=== PATIENT | female | born 1960 | race Caucasian/White ===

== ENCOUNTER 2016-09-08 07:00 | Inpatient (IN) | payer OTHER ==
[~2016-09-08] VITALS: Ht 172.7 cm; Wt 105.7 kg
[~2016-09-08 07:00] MED LIST: METFORMIN HCL500 M2 PO; OXYBUTYNIN CHLOR5 M3 PO; SYNTHROID175 MCG PO
[2016-09-11] MEDS ORDERED: VITAMIN D-32000 UNI1 PO (09:18)
[2016-09-11] MEDS ORDERED: CALCIUM 500 +1 EAC5 PO (09:19)
[2016-09-11] MEDS ORDERED: MULTIVITAMINS1 EACH PO (09:19)
--- NOTE | 2016-09-11 13:22 | Admission Core Measures ---
Admission Meds I reviewed the following Meds: Current Medications Sig/Kelly Start time Last Medication Dose Stop Time Status Admin Acetaminophen 1,000 MG Q6 09/11 1800 UNVr (Ofirmev) 09/12 1214 N/A 1 UNIT (No Carrier) Acetaminophen/ 15 ML Q6P PRN 09/11 1315 UNVr Hydrocodone Bitart (Hycet) Cefazolin Sodium 2,000 MG ONCE 09/11 0000 NR (Kefzol-Ancef Inj) 09/11 2359 Dexamethasone 4 MG ONCE 09/11 0000 NR (Decadron Inj) 09/11 2359 Dextrose/Sodium 1,000 ML Q8H 09/11 1330 UNVr Chloride (D5-Normal Saline) Heparin Sodium 5,000 UNIT Q8 09/11 2200 UNVr (Porcine) Heparin Sodium 5,000 UNIT ONCE 09/11 0000 NR (Porcine) 09/11 2359 Hydromorphone HCl 1 MG Q4P PRN 09/11 1315 UNVr (Dilaudid) Insulin Aspart 0 Q6 09/11 1800 UNVr (NovoLOG) Levothyroxine Sodium 0.175 MG DAILY AC 09/12 0700 UNVr (Synthroid) Ondansetron HCl 4 MG Q6P PRN 09/11 1315 UNVr (Zofran) Oxybutynin Chloride 2.5 MG BID 09/11 2200 UNVr (Ditropan 2.5MG Tab(1/2 of a 5mg tab)) Pantoprazole Sodium 40 MG DAILY 09/12 1000 UNVr (Protonix) Simethicone 40 MG Q6P PRN 09/11 1315 UNVr (Mylicon) Acute Coronary Syndrome Inclusion Criteria ACS Diagnosis No Inpatient Core Measures LDL Reminder: If No, please order W/I first 24hr of stay Congestive Heart Failure Inclusion Criteria CHF Diagnosis No Cerebrovascular accident Inclusion Criteria CVA/TIA Diagnosis No Inpatient Core Measures Bedside Swallow Eval Reminder: If BSE failed, place ST order Antithrombotic Reminder: Order Antithrombotic Medication by end of day 2 Antithrombotic Reminder: Document Reason Antithrombotic Not ordered by end of day 2 AFIB/Flutter Reminder: If Present, add to problem list AFIB/Flutter Reminder: Order Anticoag Medication for pts with AFIB/Flutter Atherosclerosis Reminder: If Present, add to problem list LDL Reminder: If No, please order W/I first 24hr of stay PT Order Reminder: If No, please order Venous thromboembolism Inpatient Core Measures VTE Risk Factors: Age > 40, Obesity, Surgery No [facility] VTE prophylaxis d/t No contraindications No VTE Pharm Prophylaxis d/t No contraindications Inclusion Criteria - Per Current guidelines, there needs to be overlap - treatment for the first 5 days of Warfarin therapy. - Parenteral Anticoagulation (IV or SC) needs to be - given along with Warfarin therapy. VTE Diagnosis No VTE Type NONE VTE Confirmed by (Test) NONE Problem List As ranked by this Provider includes Assessment & Plan 1. S/P laparoscopic sleeve gastrectomy 2. Hypothyroidism 3. Diabetes 4. Morbid obesity HOME MEDS Home Med List Calcium Carbonate/Vitamin D3 (Calcium 500 + D Tablet) 500 MG-400 TABLET 1 TAB PO DAILY SUPP (Reported) Cholecalciferol (Vitamin D3) (Vitamin D-3) 2,000 UNIT CAPSULE 1 TAB PO DAILY SUPP (Reported) Levothyroxine Sodium (Synthroid) 175 MCG TABLET 1 TAB PO DAILY HYPOTHYROID ( Reported) Metformin HCl (Metformin HCl ER) 500 MG TAB.ER.24 1.5 TAB PO DAILY DM II ( Reported) Multivitamin W/Iron, Minerals (Multivitamins With Iron) 1 EACH TAB.CHEW 1 TAB PO DAILY SUPP (Reported) Oxybutynin Chloride (Oxybutynin Chloride ER) 5 MG TAB.ER.24 1 TAB PO DAILY STRESS INCONTINENCE (Reported)
--- NOTE | 2016-09-11 14:13 | Patient Discharge Instructions ---
Discharge Instructions General Discharge Information You were seen/treated for: morbid obesity You had these procedures: laparoscopic sleeve gastrectomy (09/11/16) Watch for these problems: fever>101.3, increased pain, redness/swelling/drainage, dizziness, shortness of breath, chest pains No bath, but you may shower: Yes Acute Coronary Syndrome Inclusion Criteria At DC or during hospital stay patient has or had the following: ACS DIAGNOSIS No Discharge Core Measures Meds if any: Prescribed or Continued at Discharge Meds if any: NOT Prescribed or Continued at Discharge Congestive Heart Failure Inclusion Criteria At DC or during hospital stay patient has or had the following: CHF DIAGNOSIS No Discharge Core Measures Meds if any: Prescribed or Continued at Discharge Meds if any: NOT Prescribed or Continued at Discharge Cerebrovascular accident Inclusion Criteria At DC or during hospital stay patient has or had the following: CVA/TIA Diagnosis No Discharge Core Measures Meds if any: Prescribed or Continued at Discharge Meds if any: NOT Prescribed or Continued at Discharge Venous thromboembolism Inclusion Criteria VTE Diagnosis No VTE Type NONE VTE Confirmed by (Test) NONE Discharge Core Measures - Per Current guidelines, there needs to be overlap - treatment for the first 5 days of Warfarin therapy. - If discharged on Warfarin prior to 5 days of - overlap therapy, the patient will need to be - assessed for post discharge needs including - *Post discharge parental anticoagulation - *Warfarin and/or parental anticoagulation education - *Follow up date to check INR post discharge At least 5 days overlap therapy as Inpatient No Meds if any: Prescribed or Continued at Discharge Note: Overlap Therapy is Warfarin and Anticoagulant Meds if any: NOT Prescribed or Continued at Discharge
[2016-09-11 15:27] VITALS: BP 130/80
--- NOTE | 2016-09-11 15:27 | NUR ---
AT THIS TIME PT ARRIVED FROM PACU TO , PT ALERT AND ORIENTEDX3, ON RA, VSS, DENIES CP, DENIES SOB, +PULSES, DRESSINGS TO ABDOMEN C/D/I, PT HAS NO COMPLAINTS AT THIS TIME, ORIENTED TO ROOM AND CALL IBRAHIM, FLUIDS RUNNING PER EMAR, BED IN LOWEST POSITION, TWO BELONGINGS BAGS PUT ON SHELF, WILL CONT TO MONITOR.
--- NOTE | 2016-09-11 15:55 | PN- Bariatrics ---
Subjective Subjective: Postop check: Postop day 0 status post arthroscopic sleeve gastrectomy. Patient with minimal epigastric pain. No nausea, no vomiting, no fever no flulike illness. She has no other complaints. She is resting comfortably. Objective Vital Signs and I&Os vss,afebrile Physical Exam: Well-developed well-nourished no apparent distress. HEENT: Atraumatic, extraocular motion intact Neck: Supple, no lymphadenopathy Respiratory: No respiratory distress clear to auscultation bilateral. Heart: Regular rate and rhythm no murmur Abdomen: Dressings with minimal blood staining. No swelling no erythema. Abdomen is soft, mildly tender in the epigastric and central abdominal region. No distention. Extremities: No edema, no calf pain Neuro: Alert and oriented x3 Psych: Mood affect normal, normal memory normal judgment. Skin: Warm and dry, no rash on exposed skin Assessment/Plan Assessment/Plan Postop day 0 status post laparoscopic sleeve gastrectomy -Postoperative the patient is stable -Pain medication as needed -Heparin for DVT prophylaxis -Protonix IV for GI prophylaxis -Stage I bariatric diet -Nothing by mouth after midnight for upper GI series in the morning -Out of bed ad jennifer. -Check labs in a.m. -IV fluids until tolerating adequate by mouth -Insulin sliding scale, metformin being held Core Measures/Miscellaneous Venous Thromboembolism VTE Risk Factors: Age > 40, Surgery VTE Contraindications: No Contraindications VTE Diagnosis: No VTE Type: NONE VTE Confirmed by (Test): NONE Beta Rozina Is Beta Rozina a Home Med? No Antibiotics Is Patient on Antibiotics? No
--- NOTE | 2016-09-11 16:51 | Operative Report ---
Operative/Inv Procedure Report Surgery Date: 09/11/16 Name of Procedure: Laparoscopic Sleeve Gastrectomy Pre-Operative Diagnosis: Morbid obesity Post-Operative Diagnosis: same Estimated Blood Loss: less than 50ml Surgeon/Motor Assembler: LEONILA MOREL,Nemesio Castillo MD Anesthesia: general endotracheal tube IV Fluids: LR Urine Output: n/a Drains: none Specimens: portion of stomach Complications: none Condition: stable Operative Indication: see admission H&P Operative/Procedure Note Note: After informed consent and proper identification the patient was taken the operating room placed on the operating table in the supine position Venodyne stockings were applied she underwent a general endotracheal anesthetic the abdomen was prepped and draped in normal sterile fashion using a 1 cm incision left upper quadrant a 0 laparoscope and an Ethicon Visiport we entered the abdominal cavity without difficulty and insufflated with 14 mm of CO2 pressure. We had excellent visualization the liver was small smooth and glistening there was no evidence of a hiatal additional trochars a been placed 25 mm trochars in each of the subcostal margins a July liver retractor in the upper midline to retract the left lobe of the liver and a 15 mm trocar in the right mid abdomen we had anesthesia decompress the stomach with an orogastric tube and then remove it using a sonic excision scalpel we dissected the vascular attachments along the greater curvature of the stomach approximately 6 cm from the pylorus opposite the angularis all the way up to the fundus of the stomach and the angle his and reflected the fundus medially off of the left grace. We had excellent visualization of the retrogastric space the pancreas splenic vessels and spleen appeared normal. We had anesthesia place a 38 Panamanian bougie into the stomach using this as a guide and using in Endo SHEYLA stapler we fired 2 black load 60 cm cartridges with seam guard followed by 2 purple 60 cm cartridges with seam guard to completely transect the remnant stomach from the newly created sleeve we then had anesthesia remove the bougie we had no significant bleeding replaced the remnant stomach in an Endo Catch bag and pulled it out through the 15 mm trocar site we inspected the trocar sites is we remove them from the abdominal cavity closed all the skin incisions with 4-0 Monocryl subcuticular stitches Steri-Strips and dry sterile dressings were placed sponge and instrument counts were correct the patient tolerated the procedure without complications and was extubated and taken to the recovery room in stable condition Findings: normal liver and no evidence of hiatal hernia Discharge Disposition: PACU
[2016-09-11] MEDS ORDERED: PROTONIX40 M3 PO (17:21)
[2016-09-11] MEDS ORDERED: HYCET 7.5 MG-3473 ML PO (17:21)
--- NOTE | 2016-09-11 17:28 | Surg Short-stay <48hrs Dis Sum ---
See Addendum Visit Information Visit Dates Admission Date: 09/11/16 Discharge Date: 09/13/16 Surgical Short Stay DC Summary Admission Diagnosis: morbid obesity Final Diagnosis: same Procedure(s): laproscopic sleeve gastrectomy Summary/Significant Findings: Admitted for the above diagnosis and after a quick recovery in pacu admitted to the floor in stable condition for post op care . POD #1 upper GI study was done and the findings of the study was normal. Intiated on stage I bariatric diet . She remained vitally stable and pain is adequately controlled. Therefore it was deemed that she will be discharged home. Condition at Discharge: stable Discharge Disposition: home or self care Discharge instructions provided to patient/family: Yes Post discharge follow-up plan: call office to schedule /confirm the post op follow up visit.
[2016-09-11 19:48] VITALS: BP 152/90
[2016-09-11 22:41] VITALS: BP 150/88
[2016-09-12 07:00] VITALS: BP 130/78
--- NOTE | 2016-09-12 07:20 | PN- Bariatrics ---
Subjective Subjective: Reports expected nicolas-incisional discomfort. No nausea. Currently npo awaiting upper gi study. No problems overnight. Out of bed without difficulty. No dizziness. No shortness of breath. No chest pains. Voiding well. Objective Vital Signs and I&Os Vital Signs Date Time Temp Pulse Resp B/P Pulse O2 O2 Flow FiO2 Ox Delivery Rate 09/12 0700 98.7 86 18 130/78 95 Room Air 09/12 0600 97 Room Air 09/11 2241 98.1 69 18 150/88 97 Room Air 09/11 2200 97 Room Air 09/11 1948 98.0 68 18 152/90 97 Room Air 09/11 1854 Room Air Room Air 09/11 1600 97 Nasal Cannula 09/11 1527 97.6 63 20 130/80 97 Room Air Intake & Output 09/12 0800 09/12 0000 09/11 1600 09/11 0800 09/11 0000 09/10 1600 Intake Total 1210 1325 Output Total 0 450 Balance 1210 875 Intake, IV 1210 925 Intake, Oral 0 400 Number 0 0 Bowel Movements Output, Urine 0 450 Patient 233 lb Weight Physical Exam: General - alert & oriented x 3. comfortable. no acute distress. Lungs - clear bilaterally. no w/r/r. Cardiac - s1s2. reg. Abdomen - soft. dressings c/d/i. active bowel sounds. no drains. Extremities - warm bilaterally. no c/c/e. calves soft and nontender b/l. Assessment/Plan Assessment/Plan This 56 year old white female with hx morbid obesity, niddm, hypothyroidism, is POD#1 s/p laparoscopic sleeve gastrectomy currently npo awaiting upper gi study stage 1 bariatric diet if ugi negative for leak pain controlled oob/ambulating hep sc - dvt ppx. lovenox risk score 2, so no lovenox teaching needed. f/u labs monitor accuchecks (196, 196, 184) hold metformin. protonix - gi ppx will d/w Core Measures/Miscellaneous Venous Thromboembolism VTE Risk Factors: Age > 40, Surgery VTE Contraindications: No Contraindications VTE Diagnosis: No VTE Type: NONE VTE Confirmed by (Test): NONE Beta Rozina Is Beta Rozina a Home Med? No Antibiotics Is Patient on Antibiotics? No
--- NOTE | 2016-09-12 08:51 | NUR ---
NURSING NOTE: PATIENT LEFT FLOOR VIA STRETCHER WITH DISTRIBUTION FOR UPPER GI SERIES. PATIENT A/OX3, PAIN AT THIS TIME TOLERABLE PER PATIENT. WILL AWAIT RETURN. PATIENT NPO SINCE MIDNIGHT FOR PROCEDURE.
[2016-09-12 09:21] LABS: ABSOLUTE BASOPHIL COUNT 0 /CUMM (0.0-0.2); ABSOLUTE EOSINOPHIL COUNT 0 /CUMM (0.0-0.7); ABSOLUTE GRANULOCYTE CT 6.4 /CUMM (1.4-6.5); ABSOLUTE LYMPH COUNT 1.3 /CUMM (1.2-3.4); ABSOLUTE MONOCYTE COUNT 0.6 /CUMM (0.10-0.60); BASOPHIL % 0.1 % (0.0-2.0); EOSINOPHIL % 0 % (0-5); GRANULOCYTE % 77.6 % (42.2-75.2); HEMATOCRIT 35.8 % (37-47); MEAN CORPUSCULAR HGB 29.2 PG (27.0-31.0); MEAN CORPUSCULAR HGB CONC 33.7 G/DL (33.0-37.0); MEAN CORPUSCULAR VOLUME 86.8 FL (81.0-99.0); MEAN PLATELET VOLUME 7.9 FL (7.4-10.4); PLATELET COUNT 189 /CUMM (130-400); RBC DISTRIBUTION WIDTH 13.3 % (11.5-14.5); RED BLOOD CELL CT 4.13 /CUMM (4.20-5.40); WHITE BLOOD CELL COUNT 8.3 /CUMM (4.8-10.8)
--- NOTE | 2016-09-12 10:45 | RADIOLOGY REPORT ---
EXAMINATION: FL UPPER GI SERIES CLINICAL INFORMATION: 56 year old female, status post sleeve gastrectomy. Postop day 1. To assess for presence or absence of leak. COMPARISON: None TECHNIQUE: A single contrast upper GI series with fluoroscopy and spot imaging was performed. The patient ingested Gastrografin without difficulty and was evaluated in the upright and recumbent positions. FINDINGS: Expected postsurgical changes of gastric sleeve surgery is noted. There is no contrast extravasation to suspect sleeve leak. No evidence of any obstruction present. FLUOROSCOPY TIME: 1.44 minutes NUMBER OF IMAGES: 133 IMPRESSION: Normal postsurgical changes of gastric sleeve surgery. Specifically no leak is visualized.
--- NOTE | 2016-09-12 12:56 | NUR ---
Consult received for diet education s/p sleeve gastrectomy, thank you for consult. Visited with pt this morning. Denies questions about post-op diet progression and declined a copy of the post-op diet as she has it at home. Encouraged pt to call with any questions.
[2016-09-12 14:34] VITALS: BP 153/88
[2016-09-12 22:31] VITALS: BP 150/88
[2016-09-13 07:19] VITALS: BP 142/88
--- NOTE | 2016-09-13 10:34 | NUR ---
NURSING NOTE: PATIENT LEFT FLOOR FOR DISCHARGE WITH SPOUSE. 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 PATIENT GIVEN DISCHARGE INFORMATION. IV DISCONTINUED. INSTRUCTED TO CALL BACK WITH ANY QUESTIONS IF NECESSARY.
== END 2016-09-13 10:29 | DRG 621 ==
LOC: ENRESERVTM → ENRESERVDT → 2NB 09-11 01:38 → SDA 09-11 01:38 → 2NB 09-11 15:24
PROVIDERS: Physician Assistant; ADMIT Surgery
PROC: 0DB64Z3 Excision of Stomach, Percutaneous Endoscopic Approach, Vertical (ICD-10-PCS; principal; 2016-09-11)
DX: E66.01 Morbid (severe) obesity due to excess calories (principal); E03.9 Hypothyroidism, unspecified; Z71.3 Dietary counseling and surveillance; Z68.35 Body mass index [BMI] 35.0-35.9, adult; E11.9 Type 2 diabetes mellitus without complications; Z79.84 Long term (current) use of oral hypoglycemic drugs
CPT/HCPCS: 2NBSP; 36415; 74240; 82436; 88307; J0131; J0690; J1100; J1644; J2405; J7042